=== PATIENT | male | born 1965 | race Caucasian/White ===

== ENCOUNTER → 2017-05-13 | Outpatient (CLI) | payer OTHER ==
[~2017-05-13] MED LIST: AMBEREN; AMBIEN 5 MG TABL5 M1 PO; BACTRIM DS TAB1 EACH PO; CARISOPRODOL; CIPROFLOXACIN500 M1 PO; CLARINEX-D 241 EACH; CLARITIN-D 24 H1 TA1 PO; CLEOCIN HCL300 MG PO; DEPO-TESTO200 MG/1 M IM; EFFEXOR XR150 MG PO; FLOMAX0.4 MG PO; GABAPENTIN600 M1 PO; HYDROCODONE-AP1 EAC6 PO; KEFLEX500 MG PO; LEVSIN0.125 MG SL; LOMAIRA8 MG PO; LOSARTAN-HCTZ1 EAC2 PO; MEN'S VITAMIN PO; MOBIC7.5 MG PO; NAPROSYN500 MG PO; NEXIUM40 MG PO; NORCO 5-325 TA1 EACH PO; OMEPRAZOLE 20 M20 M1 PO; PHENAZOPYRIDIN200 M2 PO; ROBAXIN 750 MG750 M1 PO; TIZANIDINE HCL4 M1 PO; TRAMADOL; TRAMADOL 50 MG50 MG PO; ZOFRAN ODT4 MG PO
[2017-05-13 17:23] LABS: ABSOLUTE BASOPHILS 0.1 thou/uL (0.0-0.2); ABSOLUTE EOSINOPHILS 0.1 thou/uL (0.0-0.7); ABSOLUTE LYMPHOCYTES 1.8 thou/uL (0.8-5.3); ABSOLUTE MONOCYTES 0.8 thou/uL (0.0-1.2); ABSOLUTE NEUTROPHILS 5.2 thou/uL (1.6-8.1); BASOPHILS 0.7 %; EOSINOPHILS 1.3 %; HEMATOCRIT 41.6 % (42.0-52.0); HEMOGLOBIN 13.7 gm/dL (14.0-18.0); LYMPHOCYTES 22.9 %; MCH 27.5 pg (26.0-34.0); MCV 83.2 fL (80.0-100.0); MONOCYTES 9.6 %; MPV 8.3 fl. (7.2-11.1); NUCLEATED RBCS 0 /100WBC; PLATELET COUNT* 289 thou/uL (150-400); POLYS 65.5 %; RDW-CV 15.8 % (10.5-14.5)
[2017-05-13 17:29] LABS: POTASSIUM 3.9 mmol/L (3.5-5.1)
== END ==
LOC: M.LAB 17:01
PROVIDERS: Urology
DX: Z01.818 Encounter for other preprocedural examination (principal); N20.0 Calculus of kidney

== ENCOUNTER → 2017-05-16 | Outpatient (CLI) | payer OTHER ==
--- NOTE | 2017-05-16 17:10 | EKG ---
[place] [address] ELECTROCARDIOGRAM REPORT Name: TURNER QUISPE Room: [facility]#: [id number] Admission: 05/16/17 Attend Phys: Justin Quispe MD Discharge: Date of : 69 Report #: [id number] THIS REPORT FOR: //name// [facility] Test Date: 2017-05-16 Test Time: 15:56:48 Pat Name: TURNER QUISPE Department: Room: Gender: M [employer] Operator: : [id number] Requested By: Justin Quispe Order Number: [id number] Reading : Armen Pringle Measurements Intervals [place] Rate: 93 P: 62 MO: 153 QRS: 60 QRSD: 107 T: 42 QT: 373 QTc: 464 Interpretive Statements Sinus rhythm Compared to ECG 04/05/2016 19:06:57 No significant changes Electronically Signed On 05-16-2017 17:10:04 [employer] by Armen Pringle [email or web address] <ELECTRONICALLY SIGNED> By: Armen Pringle MD, [facility] 05/16/17 1710 1556 1556 Armen Pringle MD, FACC /EPI
== END ==
LOC: M.CRD 15:41
DX: Z01.818 Encounter for other preprocedural examination (principal); N20.0 Calculus of kidney

== ENCOUNTER → 2017-10-31 | Outpatient (CLI) | payer OTHER | LOC: M.ULTRA 15:54 | DX: M79.89 Other specified soft tissue disorders (principal); L53.9 Erythematous condition, unspecified ==

== ENCOUNTER → 2018-01-11 | Outpatient (CLI) | payer OTHER | LOC: M.WC 13:00 | DX: I89.0 Lymphedema, not elsewhere classified (principal); M10.9 Gout, unspecified; I10 Essential (primary) hypertension ==